=== PATIENT | male | born 1980 | race Caucasian/White ===

== ENCOUNTER 2016-12-14 22:04 | Emergency (ER) | payer OTHER ==
[~2016-12-14] VITALS: Ht 170.2 cm; Wt 102.2 kg
[~2016-12-14 22:04] MED LIST: /CIPR75TA OR; ALBUTEROL LIQ; ANTIBIOTIC PO; FERR325T OR; NICO21DI4 TD; ROBITUSSIN PO; VICO5TAB OR; VITA500T OR
[2016-12-14] MEDS ORDERED: FLUO20CA19 (22:17)
[2016-12-14] MEDS ORDERED: METH40TA PO (22:17)
[2016-12-14] MEDS ORDERED: HYDR1CAP25 (22:17)
[2016-12-14] MEDS ORDERED: SERO50TA (22:17)
[2016-12-14] MEDS ORDERED: BENZ0.5T (22:17)
--- NOTE | 2016-12-15 01:20 | ED PDOC ---
Post-Departure Follow-Up PT PRESENTS WITH FATHER TODAY COMPLAINING OF POSSIBLE MED SIDE EFFECTS FROM STARTING BENZTROPINE LAST WEEK, PRESCRIBED FROM PSYCHIATRIST. PT BEGAN HAVING VISUAL AND AUDITORY HALLUCINATIONS, HE STATES, "I WAS SEEING THINGS THAT AREN'T THERE AND TALKING TO THINGS THAT AREN'T THERE." STATES HE IS STILL HAVING THESE HALLUCINATIONS BUT THEY AREN'T BAD THEY WERE. FATHER IS CONCERNED FOR THIS PT'S SAFETY AT HOME HE HAS NOT SLEPT IN DAYS AND KEEPS NODDING OFF AND THEN GETS STARTLED AWAKE. PT DENIES ANY SI, HI. STATES HE GOES TO [facility] [place] AND HAS A SENIOR CLINICIAN THAT COMES TO PICK HIM UP EARLY IN THE MORNING FOR HIS APPT. PT IS ANXIOUS ABOUT STAYING IN THE HOSPITAL HE WANTS TO GO OUTSIDE AND SMOKE. WHEN HE WAS TOLD HE COULDN'T, PT STATED HE WANTED TO LEAVE. FATHER ASKING PT TO STAY AND GET HIS MEDS SORTED OUT. PT AND FATHER CONTINUED TO DISCUSS THIS AND PT STATES HE WILL STAY UNTIL 1000 TOMORROW. IT IS NOT GUARANTEED THAT HE WOULD BE SEEN BY PSYCH BY THAT TIME. DISCUSSED CASE WITH DR. MENDEZ AND WITH STEFAN (RIANNA). STEFAN WILL SPEAK WITH PT AND FATHER AT THIS TIME. RIANNA AVILES SAW AND SPOKE WITH PT AND FATHER AT THIS TIME. PT AND FATHER CONCERNED ABOUT THE TONGUE SWELLING AN ALLERGIC REACTION. ADVISED DR. MENDEZ ADVISED AGAINST TREATMENT OF THIS FAR STEROIDS. CAN GIVE BENADRYL AND WILL D/C PT TO HOME. PT STATES WILL CALL HIS PSYCHIATRIST TOMORROW. STEFAN ADVISED PT DOES NOT MEET ADMISSION CRITERIA AT THIS TIME. CHARMAINE PERSAUD PA-C Dec 15, 2016 01:20
[2016-12-15] MEDS ORDERED: diphenhydrAMINE 50 MG CAP PO ONE (01:45)
[2016-12-15 01:56] VITALS: BP 134/74
[2016-12-15] MEDS ORDERED: AMBI10TA PO ×2 (08:05→12:37)
[2016-12-15] MEDS ORDERED: ALBU17IN INH (12:16)
[2016-12-15] MEDS ORDERED: ATOR1TAB21 PO (12:16)
[2016-12-15] MEDS ORDERED: FLUO20CA19 PO (12:37)
[2016-12-15] MEDS ORDERED: GEMF600T PO (12:37)
[2016-12-15] MEDS ORDERED: BENZ0.5T PO (12:37)
[2016-12-15] MEDS ORDERED: SERO50TA PO (12:37)
[2016-12-15] MEDS ORDERED: TRIL1TAB PO ×2 (12:37→12:38)
[2016-12-15] MEDS ORDERED: DRIS50002 PO (12:37)
[2016-12-15] MEDS ORDERED: HYDR1CAP25 PO (12:37)
[2016-12-15] MEDS ORDERED: TEST1GEL6 TOP (12:38)
[2016-12-15] MEDS ORDERED: METH10CO PO (12:39)
[2016-12-15] MEDS ORDERED: PATIENT COMMENT (12:40)
== END 2016-12-15 01:58 | disposition home or self-care (01) ==
LOC: M ED 22:04
DX: R44.0 Auditory hallucinations (principal); R44.1 Visual hallucinations; T44.3X5A Adverse effect of other parasympatholytics [anticholinergics and antimuscarinics] and spasmolytics, initial encounter; Z72.0 Tobacco use

== ENCOUNTER 2016-12-15 07:31 | Inpatient (IN) | payer OTHER ==
[2016-12-15] VITALS (8 sets, daily range): BP systolic 105–128; BP diastolic 58–73
[~2016-12-15] VITALS: Ht 170.2 cm; Wt 102.2 kg
[~2016-12-15 07:31] MED LIST changes: +BENZ0.5T; +FLUO20CA19; +HYDR1CAP25; +METH40TA PO; +SERO50TA
[2016-12-15] MEDS ORDERED: AMBI10TA PO ×2 (08:05→12:37)
[2016-12-15 08:36] LABS: BASO % 0.5 % (0.0-1.0); EOS # 0.1 K/mm3 (0.0-0.50); LARGE UNSTAINED CELL # 0.1 K/mm3 (0.0-0.4); LARGE UNSTAINED CELL % 1.3 % (0.0-4.0); LYMPH # 1.7 K/mm3 (1.5-4.5); MEAN CORPUSCULAR HEMOGLOBIN 30.1 pg (27.0-33.0); MEAN CORPUSCULAR HGB CONC 35.3 g/dl (32.0-36.5); MEAN CORPUSCULAR VOLUME 85.4 fl (80.0-96.0); MONO # 0.5 K/mm3 (0.0-0.8); MONO % 4.5 % (0.0-5.0); NEUTROPHILS # 8.1 K/mm3 (1.8-7.7); NEUTROPHILS % 77.7 % (36.0-66.0); PLATELET COUNT, AUTOMATED 185 k/mm3 (150-450); RED CELL DISTRIBUTION WIDTH 13.4 % (11.5-14.5); WHITE BLOOD COUNT 10.4 K/mm3 (4.0-10.0)
--- NOTE | 2016-12-15 09:10 | REP ---
CT Head without contrast HISTORY: Altered mental status COMPARISON: None There is no intraparenchymal hemorrhage, acute infarct, mass or midline shift. The ventricular system is normal in appearance. There is no extra cerebral collection. There is no fracture. The visualized sinuses are clear. IMPRESSION: There is no intracranial lesion. Signed by Gelacio Moreno MD 12/15/2016 09:02 A
[2016-12-15 09:13] LABS: METHADONE URINE POSITIVE (NEGATIVE)
[2016-12-15 09:23] LABS: ALBUMIN 3.9 GM/DL (3.2-5.2); ALKALINE PHOSPHATASE 53 U/L (45-117); ALT/SGPT 60 U/L (12-78); ANION GAP 9 MEQ/L (8-16); AST/SGOT 49 U/L (15-37); BILIRUBIN,DIRECT 0.1 MG/DL (0.0-0.2); BILIRUBIN,TOTAL 0.5 MG/DL (0.2-1.0); BLOOD UREA NITROGEN 13 MG/DL (7-18); CALCIUM LEVEL 8.4 MG/DL (8.5-10.1); CARBON DIOXIDE LEVEL 28 MEQ/L (21-32); CHLORIDE LEVEL 106 MEQ/L (98-107); GLOMERULAR FILTRATION RATE > 60.0 (>60); GLUCOSE, FASTING 104 MG/DL (70-105); POTASSIUM SERUM 3.5 MEQ/L (3.5-5.1); SODIUM LEVEL 143 MEQ/L (136-145); TOTAL PROTEIN 6.9 GM/DL (6.4-8.2)
--- NOTE | 2016-12-15 09:42 | REP ---
CHEST, TWO VIEWS: COMPARISON: 03/14/2013. There is no evidence of acute infiltrate. No pleural effusion is seen. The heart is normal in size. The mediastinal silhouette is unremarkable. The visualized osseous structures are intact. IMPRESSION: No acute pulmonary disease. Signed by Emanuel Mares MD 12/16/2016 08:37 A
[2016-12-15 10:42] LABS: ABG BASE EXCESS -0.5 (-2.0-2.0); ABG HCO3 27.3 MEQ/L (22.0-26.0); ABG PARTIAL PRESSURE CO2 57.3 mmHg (35.0-45.0); ABG PARTIAL PRESSURE O2 108.1 mmHg (75.0-100.0); ABG STANDARD HCO3 24.1 MEQ/L (22.0-26.0); ABG TOTAL CO2 29.1 MEQ/L (22.0-29.0); ABG pH (ARTERIAL) 7.296 UNITS (7.350-7.450)
[2016-12-15] MEDS ORDERED: NALOXONE INJ 0.4 MG/1 ML VIAL (J2310) IV STA (11:16)
[2016-12-15] MEDS ORDERED: MORPHINE 2 MG/ML 1ML SYRINGE IV ONE (11:30)
[2016-12-15] MEDS ORDERED: ONDANSETRON 4MG/2ML VIAL (J2405) As Ordered ONE (11:36)
[2016-12-15] MEDS ORDERED: ONDANSETRON 4MG/2ML VIAL (J2405) IV ONE (11:45)
[2016-12-15] MEDS ORDERED: MORPHINE 4 MG/ML 1ML SYRINGE IV ONE ×2 (11:45→12:15)
[2016-12-15] MEDS ORDERED: NS 1,000 ML IV ONE (12:00)
[2016-12-15] MEDS: NS 1,000 ML IV SCH (12:05)
[2016-12-15] MEDS ORDERED: LORazepam 2 MG/ML VIAL (J2060) IV STA (12:13)
[2016-12-15] MEDS ORDERED: ATOR1TAB21 PO (12:16)
[2016-12-15] MEDS ORDERED: ALBU17IN INH (12:16)
[2016-12-15] MEDS ORDERED: TRIL1TAB PO ×2 (12:37→12:38)
[2016-12-15] MEDS ORDERED: BENZ0.5T PO (12:37)
[2016-12-15] MEDS ORDERED: HYDR1CAP25 PO (12:37)
[2016-12-15] MEDS ORDERED: DRIS50002 PO (12:37)
[2016-12-15] MEDS ORDERED: FLUO20CA19 PO (12:37)
[2016-12-15] MEDS ORDERED: SERO50TA PO (12:37)
[2016-12-15] MEDS ORDERED: GEMF600T PO (12:37)
[2016-12-15] MEDS ORDERED: TEST1GEL6 TOP (12:38)
[2016-12-15] MEDS ORDERED: METH10CO PO (12:39)
[2016-12-15] MEDS ORDERED: PATIENT COMMENT (12:40)
[2016-12-15] MEDS ORDERED: HALOPERIDOL 2 MG TAB PO STA (12:42)
[2016-12-15] MEDS ORDERED: ALBUTEROL 90 MCG/ACT 8GM HFA INHALER INH PRN (13:00)
[2016-12-15] MEDS ORDERED: HALOPERIDOL 5 MG/ML VIAL (J1630) IV PRN (13:00)
[2016-12-15] MEDS ORDERED: LORazepam 2 MG/ML VIAL (J2060) IV PRN (13:00)
[2016-12-15] MEDS: HEPARIN SOD (PORCINE) 5000 UNITS/ML VIAL SC SCH ×2 (14:00→22:00)
[2016-12-15] MEDS ORDERED: OLANZapine ORAL DISINTEGRATING TAB 5MG PO STA (14:03)
[2016-12-15] MEDS ORDERED: OLANZapine 5 MG TAB PO PRN (14:15)
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
--- NOTE | 2016-12-15 14:39 | MHIPNPDOC ---
[facility] Progress Note Progress Note DATE OF SERVICE: 12/15/16 HISTORY: Consulted n patient who came to the Emergency Room after he walked AMA yesterday. patient, according to history, uses methadone and Ambien. It is possible that he uses other psych medications. According to report from the emergency Room, a person observed he took his Methadone and took Ambien but that person is not quite sure as of how much Ambien he took. He was given a dose of Narcan at the Emergency Room and according to Dr. Jacobs, he went really fast into withdrawals. He also said the the ED staff should keep his DNA because he was one of President Esteban henry. He has been been agitated and received one dose of Haldol Iv and one dose of Ativan IV. Recommend not using Haldol IV, it is preferable to use it IM/PO. He can be started on Zyprexa Zydis 10 mgs. initially and 5 mgs q6 hrs. PRN for psychosis/ agitation. If he refuses the oral medication, can give him Haldol 5 mgs. q6 horus PRN for agitation and psychosis. The patient might have had an accidental or intentional overdose on Ambien or could have used a synthetic form of marihuana. Will continue assessing him. Thanks for the consult. TIME SPENT: 20 minutes. Vital Signs Vital Signs Date Time Temp Pulse Resp B/P (MAP) Pulse Ox O2 Delivery O2 Flow Rate FiO2 12/15/16 14:13 97.7 93 16 127/68 (87) 97 12/15/16 13:34 Room Air 12/15/16 10:46 2.0 Laboratory Data 24H Labs Laboratory Tests 2 12/15/16 08:25: White Blood Count 10.4H, Red Blood Count 5.19, Hemoglobin 15.6, Hematocrit 44.3 , Mean Corpuscular Volume 85.4, Mean Corpuscular Hemoglobin 30.1, Mean Corpuscular Hemoglobin Concent 35.3, Red Cell Distribution Width 13.4, Platelet Count 185, Neutrophils (%) (Auto) 77.7H, Lymphocytes (%) (Auto) 15.0L, Monocytes (%) (Auto) 4.5, Eosinophils (%) (Auto) 1.0, Basophils (%) (Auto) 0.5, Neutrophils # (Auto) 8.1H, Lymphocytes # (Auto) 1.7, Monocytes # (Auto) 0.5, Eosinophils # (Auto) 0.1, Basophils # (Auto) 0.0, Large Unclassified Cells % 1.3 , Large Unclassified Cells # 0.1, Anion Gap 9, Glomerular Filtration Rate > 60.0 , Calcium Level 8.4L, Aspartate Amino Transf (AST/SGOT) 49H, Alanine Aminotransferase (ALT/SGPT) 60, Alkaline Phosphatase 53, Total Bilirubin 0.5, Direct Bilirubin 0.1, Total Protein 6.9, Albumin 3.9, Albumin/Globulin Ratio 1.30, Thyroid Stimulating Hormone (TSH) 2.440, Salicylates Level 2.7L, Urine Amphetamines Screen NEGATIVE, Urine Benzodiazepines Screen NEGATIVE, Urine Opiates Screen NEGATIVE, Urine Methadone Screen POSITIVEH, Acetaminophen Level < 2.0L, Urine Barbiturates Screen NEGATIVE, Urine Phencyclidine Screen NEGATIVE , Urine Cocaine Metabolite Screen NEGATIVE, Urine Cannabinoids Screen NEGATIVE, Ethyl Alcohol Level < 0.003 12/15/16 10:36: Blood Gas Bicarbonate Standard 24.1, Arterial Blood pH 7.296L, Arterial Blood Partial Pressure CO2 57.3H, Arterial Blood Partial Pressure O2 108.1H, Arterial Blood Total CO2 29.1H, Arterial Blood HCO3 27.3H, Arterial Blood Base Excess - 0.5, Arterial Blood Oxygen Saturation 97.5 CBC/BMP Laboratory Tests 12/15/16 08:25 Red Blood Count 5.19, Mean Corpuscular Volume 85.4, Mean Corpuscular Hemoglobin 30.1, Mean Corpuscular Hemoglobin Concent 35.3, Red Cell Distribution Width 13.4 , Neutrophils (%) (Auto) 77.7 H, Lymphocytes (%) (Auto) 15.0 L, Monocytes (%) ( Auto) 4.5, Eosinophils (%) (Auto) 1.0, Basophils (%) (Auto) 0.5, Neutrophils # ( Auto) 8.1 H, Lymphocytes # (Auto) 1.7, Monocytes # (Auto) 0.5, Eosinophils # ( Auto) 0.1, Basophils # (Auto) 0.0 Current Medications Current Medications Albuterol Sulfate (Proventil, Ventolin Hfa) 2 puff Q4H PRN INH SHORTNESS OF BREATH; Start 12/15/16 at 13:00; Stop 01/14/17 at 12:59 Haloperidol (Haldol) 1 mg Q4HP PRN IV AGITATION; Start 12/15/16 at 13:00; Stop 12/15/16 at 14:05; Status DC Haloperidol (Haldol) 2 mg STAT STAT PO ; Start 12/15/16 at 12:42; Stop 12/15/16 at 14:05; Status DC Heparin Sodium (Porcine) (Heparin) 5,000 units Q8H SC ; Start 12/15/16 at 14:00; Stop 12/20/16 at 13:59 Home Med (Med Rec Complete!) ASDIRECTED XX ; Start 12/15/16 at 12:45; Stop at 12:46; Status DC Lorazepam (Ativan) 1 mg Q4HP PRN IV ANXIETY/AGITATION; Start 12/15/16 at 13:00; Stop 12/15/16 at 14:05; Status DC Lorazepam (Ativan) 1 mg STAT STAT IV Last administered on 12/15/16t 12:17; Start 12/15/16 at 12:13; Stop 12/15/16 at 12:14; Status DC Naloxone HCl (Narcan) 0.4 mg STAT STAT IV Last administered on 12/15/16t 11:21 ; Start 12/15/16 at 11:16; Stop 12/15/16 at 11:17; Status DC Olanzapine (ZyPREXA ZYDIS) 10 mg STAT STAT PO ; Start 12/15/16 at 14:03; Stop 12/15/16 at 14:10; Status DC Olanzapine (ZyPREXA) 5 mg Q6HP PRN PO AGITATION; Start 12/15/16 at 14:15; Stop 01/14/17 at 14:14 Sodium Chloride 1,000 ml @ 80 mls/hr [id number] IV ; Start 12/15/16 at 12:05; Stop 01/14/17 at 12:04 Allergies Coded Allergies: No Known Drug Allergy (Verified Allergy, Unknown, 08/10/12) ALE BENÍTEZ MD Dec 15, 2016 14:39
[2016-12-15] MEDS ORDERED: HALOPERIDOL 5 MG/ML VIAL (J1630) IM PRN (14:45)
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
[2016-12-16] VITALS: BP 113/63
[2016-12-16] MEDS: NS 1,000 ML IV SCH ×2 (00:35→06:05)
[2016-12-16 01:00] VITALS: BP 103/61
[2016-12-16 02:00] VITALS: BP 102/64
[2016-12-16 03:00] VITALS: BP 150/78
[2016-12-16 04:00] VITALS: BP 145/70
[2016-12-16 05:58] LABS: MEAN CORPUSCULAR HEMOGLOBIN 29.6 pg (27.0-33.0); MEAN CORPUSCULAR HGB CONC 33.9 g/dl (32.0-36.5); MEAN CORPUSCULAR VOLUME 87.3 fl (80.0-96.0); RED CELL DISTRIBUTION WIDTH 13.6 % (11.5-14.5); WHITE BLOOD COUNT 12.1 K/mm3 (4.0-10.0)
[2016-12-16] MEDS: HEPARIN SOD (PORCINE) 5000 UNITS/ML VIAL SC SCH ×2 (06:00→14:00)
[2016-12-16 06:18] LABS: ALBUMIN 3.4 GM/DL (3.2-5.2); ALBUMIN/GLOBULIN RATIO 1.03 (1.00-1.93); ALKALINE PHOSPHATASE 50 U/L (45-117); ALT/SGPT 58 U/L (12-78); ANION GAP 10 MEQ/L (8-16); AST/SGOT 39 U/L (15-37); BILIRUBIN,TOTAL 0.4 MG/DL (0.2-1.0); BLOOD UREA NITROGEN 11 MG/DL (7-18); CALCIUM LEVEL 8.6 MG/DL (8.5-10.1); CARBON DIOXIDE LEVEL 25 MEQ/L (21-32); CHLORIDE LEVEL 109 MEQ/L (98-107); CREATININE FOR GFR 0.91 MG/DL (0.70-1.30); GLOMERULAR FILTRATION RATE > 60.0 (>60); GLUCOSE, FASTING 64 MG/DL (70-105); POTASSIUM SERUM 3.8 MEQ/L (3.5-5.1); SODIUM LEVEL 144 MEQ/L (136-145); TOTAL PROTEIN 6.7 GM/DL (6.4-8.2)
[2016-12-16] MEDS ORDERED: DEXTROSE 50% 50 ML SYRINGE IV STA (06:38)
[2016-12-16] MEDS ORDERED: METHADONE 10 MG TAB (S0109) PO SCH (09:00)
--- NOTE | 2016-12-16 10:32 | ECGEPIP ---
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
[2016-12-16 14:30] VITALS: BP 158/80
--- NOTE | 2016-12-16 14:51 | MHIPNPDOC ---
[facility] Progress Note Progress Note DATE OF SERVICE: 12/16/16 HISTORY: 36 year old male with history of behavioral changes and altered consciousness who was delusional at the ER. Received one dose of Narcan, Haldol and Ativan at the ED, was transferred to the ICU, his initial CK levels were 903 and this morning were 758. Patient's friend, who is a Stapling Machine Operator reports he has been watching over the patient because he was extremely anxious and couldn't sleep. Prior to his admission he was hallucinating ( visual hallucinations) but the patient denied auditory hallucinations. Friend/gate watchman saw him extremely tired and wandering around the house, left the stove on and brought him to the Hospital. Friend says he can take him home if his Outpatient Providers can be changed because patient complained of being with different providers at [facility], and not liking the way he is seen over there. Dr. Borges was made aware of this situation and this marketing copywriter recommended him that the patient can go to [facility] for his Outpatient psychiatric follow up. The patient is alert, oriented, cooperative, dressed in hospital clothes. His speech is rapid, his thought process is intact, his thought content is coherent and goal directed. He denies auditory/visual hallucinations, denies thought delusions and denies suicidal or homicidal ideation. His memory is intact but has almost no recollection of this recent episode, couldn't remember this marketing copywriter. Attention span and concentration are fair, abstract thinking and computation is fair, judgement, insight and impulse control are appropriate. This marketing copywriter offered the patient the possibility of being transferred to the [facility] but he refused, says he wants to go home. The only reason for transferring him would be for medication adjustments, because his friend/gate watchman and he deny, intentional overdose, deny suicidal thoughts and deny illegal drug consumption, but he refused, saying he wants to go home and his friend said he would be supervising him and his medication consumption. He is on methadone, he goes everyday to [facility] for his 95 mgs. of Methadone, he has been clear, and his friend/gate watchman is being very supportive, is willing to continue being supportive. The only request he has is to have the patient connected to other Outpatient Provider for his psychiatric medications, and the patient has also requested this. Dr. borges and the ICU were notified, Dr. borges said they can do the referral. The patient was given 80 mgs. of methadone because his methadone clinic said because he didn't take his 95 mgs. yesterday, it was better for him to take 80 mgs. today. Pt. will continue with his methadone treatment at [facility] and will be attending the [facility] on [facility], once Dr. Borges and his staff are able to arrange an appointment for him He is medically clear and from the psychiatry point of view he can follow up as an outpatient. He can continue taking fluoxetine 20 mgs and Seroquel 50 mgs, but it is better for him to start using them tomorrow, 12/17/16. Vital Signs Vital Signs Date Time Temp Pulse Resp B/P (MAP) Pulse Ox O2 Delivery O2 Flow Rate FiO2 12/16/16 04:00 99.6 96 17 145/70 (95) 94 Nasal Cannula 1.0 Laboratory Data 24H Labs Laboratory Tests 2 12/16/16 05:48: Anion Gap 10, Glomerular Filtration Rate > 60.0, Blood Urea Nitrogen 11, Creatinine 0.91, Sodium Level 144, Potassium Level 3.8, Chloride Level 109H, Carbon Dioxide Level 25, Calcium Level 8.6, Aspartate Amino Transf (AST/SGOT) 39H, Alanine Aminotransferase (ALT/SGPT) 58, Total Creatine Kinase 758H, Alkaline Phosphatase 50, Total Bilirubin 0.4, Total Protein 6.7, Albumin 3.4, Albumin/Globulin Ratio 1.03 12/16/16 06:34: Bedside Glucose (Misc Panel) 66L 12/16/16 07:31: Bedside Glucose (Misc Panel) 148H CBC/BMP Laboratory Tests 12/16/16 05:48 Red Blood Count 5.35, Mean Corpuscular Volume 87.3, Mean Corpuscular Hemoglobin 29.6, Mean Corpuscular Hemoglobin Concent 33.9, Red Cell Distribution Width 13.6 , Calcium Level 8.6, Aspartate Amino Transf (AST/SGOT) 39 H, Alanine Aminotransferase (ALT/SGPT) 58, Total Creatine Kinase 758 H, Alkaline Phosphatase 50, Total Bilirubin 0.4, Total Protein 6.7, Albumin 3.4 Current Medications Current Medications Albuterol Sulfate (Proventil, Ventolin Hfa) 2 puff Q4H PRN INH SHORTNESS OF BREATH; Start 8/7/17 at 13:00; Stop 01/14/17 at 12:59 Dextrose (Dextrose 50%) 50 ml STAT STAT IV Last administered on 12/16/16 06:38 ; Start 12/16/16 at 06:38; Stop 12/16/16 at 06:41; Status DC Haloperidol (Haldol) 1 mg Q4HP PRN IV AGITATION; Start 12/15/16 at 13:00; Stop 12/15/16 at 14:05; Status DC Haloperidol (Haldol) 2 mg STAT STAT PO ; Start 12/15/16 at 12:42; Stop 12/15/16 at 14:05; Status DC Haloperidol (Haldol) 5 mg Q6HP PRN IM AGITATION; Start 12/15/16 at 14:45; Stop 12/16/16 at 13:31; Status DC Heparin Sodium (Porcine) (Heparin) 5,000 units Q8H SC Last administered on 06:00; Start 12/15/16 at 14:00; Stop 12/20/16 at 13:59 Home Med (Med Rec Complete!) ASDIRECTED XX ; Start 12/15/16 at 12:45; Stop at 12:46; Status DC Lorazepam (Ativan) 1 mg Q4HP PRN IV ANXIETY/AGITATION; Start 12/15/16 at 13:00; Stop 12/15/16 at 14:05; Status DC Lorazepam (Ativan) 1 mg STAT STAT IV Last administered on 12/15/16 12:17; Start 12/15/16 at 12:13; Stop 12/15/16 at 12:14; Status DC Methadone HCl (Dolophine) 80 mg DAILY PO ; Start 12/16/16 at 09:00; Stop at 08:59 Naloxone HCl (Narcan) 0.4 mg STAT STAT IV Last administered on 12/15/16 11:21 ; Start 12/15/16 at 11:16; Stop 12/15/16 at 11:17; Status DC Olanzapine (ZyPREXA ZYDIS) 10 mg STAT STAT PO ; Start 12/15/16 at 14:03; Stop 12/15/16 at 14:10; Status DC Olanzapine (ZyPREXA) 5 mg Q6HP PRN PO AGITATION Last administered on 12/15/16 22:15; Start 12/15/16 at 14:15; Stop 01/14/17 at 14:14 Sodium Chloride 1,000 ml @ 80 mls/hr [id number] IV Last administered on 12/16/16 06:05; Start 12/15/16 at 12:05; Stop 01/14/17 at 12:04 Allergies Coded Allergies: No Known Drug Allergy (Verified Allergy, Unknown, 08/10/12) ALE BENÍTEZ MD Dec 16, 2016 14:51
--- NOTE | 2016-12-17 22:35 | ECGEPIP ---
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
--- NOTE | 2016-12-22 19:04 | DS.PDOC ---
Discharge Summary General Date of Admission Dec 15, 2016 at 12:05 Date of Discharge 12/17/16 Specialist/Consultants Involve: ALE BENÍTEZ MD Discharge Summary PROCEDURES PERFORMED DURING STAY: None. ADMITTING DIAGNOSES: 1. . Substance induced mood disorder/ Bipolar Disorder 2. . Alteration in mental status 3. . Asthma DISCHARGE DIAGNOSES: 1. . Substance induced mood disorder/ Bipolar Disorder 2. . Alteration in mental status 3. . Asthma COMPLICATIONS/CHIEF COMPLAINT: Drug Overdose,Respiratory Acidosis. HISTORY OF PRESENT ILLNESS: . 36-year-old male with past medical history of substance abuse currently on methadone program, asthma, and psychiatric disorder presented to the ER with behavioral changes and altered consciousness. The patient was subsequently given a dose of Narcan, Haldol, and Ativan in the ER. The patient was admitted to the hospitalist service for further evaluation and management. According to reports, the patient was noted to have visual hallucinations. The patient's friend reported that he had bizarre behavior including appearing extremely tired and walking around the house while leaving the stove on. The patient's friend subsequently brought him to the ER for further evaluation and management. During hospitalization, the patient was observed in the intensive care unit. The patient was provided IV fluid hydration and supportive treatment. The patient's mentation improved, and he was medically stable. He was evaluated by our psychiatry attending, and was deemed safe to return home with his friend/ adapted physical education specialist who will be staying with him. The patient's psychiatric medication regimen was adjusted by psychiatry. The patient has been recommended to follow- up with [facility] for his outpatient psychiatric follow-up. At this time, the patient states that he is feeling well and he is eager to return home. I've advised the patient to follow-up with [facility] as noted above, and with his primary care physician within one week. In addition, I have consulted the patient to return to the ER for any acute emergency. DISCHARGE MEDICATIONS: Please see below. ALLERGIES: Please see below. PHYSICAL EXAMINATION ON DISCHARGE: VITAL SIGNS: Please see below. GENERAL: Awake, alert, oriented, in no acute distress HEENT: Normocephalic, atraumatic NECK: No JVD CARDIOVASCULAR EXAMINATION: Normal rate, normal rhythm RESPIRATORY EXAMINATION: Clear to auscultation bilaterally ABDOMINAL EXAMINATION: Soft, nontender EXTREMITIES: No swelling, tenderness LABORATORY DATA: Please see below. IMAGING: CT Head without contrast HISTORY: Altered mental status COMPARISON: None There is no intraparenchymal hemorrhage, acute infarct, mass or midline shift. The ventricular system is normal in appearance. There is no extra cerebral collection. There is no fracture. The visualized sinuses are clear. IMPRESSION: There is no intracranial lesion. PROGNOSIS: Medically stable ACTIVITY: As tolerated. DIET: . Regular diet DISCHARGE PLAN: DISPOSITION: Home, Self-Care. DISCHARGE INSTRUCTIONS: 1. . Follow-up at [facility] within one week 2. . Follow-up with primary care physician within one week 3. . Return to the ER for any acute emergencies DISCHARGE CONDITION: Stable. TIME SPENT ON DISCHARGE: Greater than 30 minutes. Vital Signs/I&Os Vital Signs Date Time Temp Pulse Resp B/P (MAP) Pulse Ox O2 Delivery O2 Flow Rate FiO2 12/16/16 16:00 Nasal Cannula 2.0 12/16/16 14:30 18 158/80 12/16/16 04:00 99.6 96 94 Discharge Medications Scheduled (Testosterone) 1 % Gel, 50 MG TOP DAILY, (Reported) Fluoxetine Hcl (Fluoxetine HCl) 20 Mg Cap, 20 MG PO DAILY, (Reported) Gemfibrozil (Gemfibrozil) 600 Mg Tab, 600 MG PO BID, (Reported) Oxcarbazepine (Trileptal) 300 Mg Tab, 150 MG PO QAM, (Reported) Oxcarbazepine (Trileptal) 300 Mg Tab, 300 MG PO QHS, (Reported) Quetiapine Fumerate (Seroquel) 50 Mg Tab, 50 MG PO QHS, (Reported) Vitamin D (Drisdol) 50,000 Unit Cap, 50,000 UNIT PO QWEEK, (Reported) Scheduled PRN Albuterol Sulfate (Ventolin Hfa) 200 Puff/8 Gm Aers, 2 PUFF INH Q4H PRN for SHORTNESS OF BREATH, (Reported) Allergies Coded Allergies: No Known Drug Allergy (Verified Allergy, Unknown, 08/10/12) JIA CROCKETT MD Dec 22, 2016 19:04
== END 2016-12-16 16:29 | disposition home or self-care (01) | DRG 425 ==
LOC: M ED 07:31 → M ED INP 12:05 → M ICU 14:25
PROVIDERS: ADMIT Internal Medicine; ATTEND Internal Medicine
DX: E87.2 Acidosis (principal); F19.151 Other psychoactive substance abuse with psychoactive substance-induced psychotic disorder with hallucinations; R41.82 Altered mental status, unspecified; D50.9 Iron deficiency anemia, unspecified; Z79.899 Other long term (current) drug therapy

== ENCOUNTER → 2016-12-22 | Outpatient (CLI) | payer OTHER ==
[~2016-12-22] MED LIST changes: +ALBU17IN INH; +AMBI10TA PO; +ATOR1TAB21 PO; +BENZ0.5T PO; +DRIS50002 PO; +FLUO20CA19 PO; +GEMF600T PO; +HYDR1CAP25 PO; +METH10CO PO; +PATIENT COMMENT; +SERO50TA PO; +TEST1GEL6 TOP; +TRIL1TAB PO
--- NOTE | 2016-12-27 09:25 | SLEEPHOME ---
DATE OF PROCEDURE: 12/22/2016 ORDERED BY: Dr. aWlker Diagnostic home sleep testing was performed due to concern for the obstructive sleep apnea syndrome. For resting a NOX-T3 respiratory monitoring device was used. Continuous record was made of pulse, oxygen saturation, air flow chest and abdominal strain and body position. 9 hours and 59 minutes of data were reviewed. Of these, 5 hours and 33 minutes were marked as time in bed. During the interval marked time in bed there were 78 respiratory events identified of 10 seconds in duration or greater for a respiratory event index of 14. The events were primary obstructive but significant mixed and central apneas were also seen. Baseline pulse rate was 70 beats per minute. Pulse rate ranged 49 to 108. Baseline oxygen saturation was 93%. Lowest oxygen saturation recorded was 89%. Testing was performed in both the supine and non-supine positions. IMPRESSION: Abnormal home sleep testing with repetitive respiratory events and oxygen desaturations to 89% with a respiratory event index of 22.8 is consistent with the obstructive sleep apnea syndrome. RECOMMENDATIONS: The patient should be referred for formal sleep evaluation and in laboratory pressure titration.
== END ==
LOC: M SLEEP HO 14:19
PROVIDERS: ATTEND Internal Medicine Cardiovascular Disease
DX: G47.33 Obstructive sleep apnea (adult) (pediatric) (principal)

== ENCOUNTER → 2017-07-17 | Outpatient (CLI) | payer OTHER ==
[2017-07-17 13:30] LABS: BASO # 0.1 10^3/uL (0.0-0.2); BASO % 0.7 % (0.0-1.0); EOS # 0.2 10^3/uL (0.0-0.50); EOS % 1.9 % (0.0-3.0); HEMATOCRIT 50.5 % (42.0-52.0); HEMOGLOBIN 17.1 g/dl (14.0-18.0); IMMATURE GRANULOCYTE % 0.3 % (0-3.0); LYMPH # 3.2 10^3/uL (1.5-4.5); LYMPH % 32.9 % (24.0-44.0); MEAN CORPUSCULAR HEMOGLOBIN 28.6 pg (27.0-33.0); MEAN CORPUSCULAR HGB CONC 33.9 g/dl (32.0-36.5); MEAN CORPUSCULAR VOLUME 84.6 fl (80.0-96.0); MONO # 0.8 10^3/uL (0.0-0.8); MONO % 8.6 % (0.0-5.0); NEUTROPHILS # 5.4 10^3/uL (1.8-7.7); NEUTROPHILS % 55.6 % (36.0-66.0); PLATELET COUNT, AUTOMATED 211 10^3/uL (150-450); RED BLOOD COUNT 5.97 10^6/uL (4.30-6.10); RED CELL DISTRIBUTION WIDTH 13.2 % (11.5-14.5); WHITE BLOOD COUNT 9.8 10^3/uL (4.0-10.0)
[2017-07-17 14:06] LABS: ALBUMIN/GLOBULIN RATIO 1.25 (1.00-1.93); ALKALINE PHOSPHATASE 57 U/L (45-117); ALT/SGPT 54 U/L (12-78); ANION GAP 10 MEQ/L (8-16); AST/SGOT 30 U/L (7-37); BILIRUBIN,TOTAL 0.3 MG/DL (0.2-1.0); BLOOD UREA NITROGEN 12 MG/DL (7-18); CARBON DIOXIDE LEVEL 25 MEQ/L (21-32); CHLORIDE LEVEL 104 MEQ/L (98-107); CREATININE FOR GFR 1.09 MG/DL (0.70-1.30); GLOMERULAR FILTRATION RATE > 60.0 (>60); GLUCOSE, FASTING 129 MG/DL (70-100); POTASSIUM SERUM 4.3 MEQ/L (3.5-5.1); SODIUM LEVEL 139 MEQ/L (136-145); TOTAL PROTEIN 7.2 GM/DL (6.4-8.2); URIC ACID 5.1 MG/DL (3.5-7.2)
== END ==
LOC: M WUC 11:05
DX: M79.671 Pain in right foot (principal)
CPT/HCPCS: 84550

== ENCOUNTER → 2018-01-18 | Outpatient (CLI) | payer OTHER ==
[2018-01-18 09:37] LABS: HEMATOCRIT 49.9 % (42.0-52.0); HEMOGLOBIN 17.1 g/dl (13.5-17.5); MEAN CORPUSCULAR HEMOGLOBIN 28.9 pg (27.0-33.0); MEAN CORPUSCULAR HGB CONC 34.3 g/dl (32.0-36.5); MEAN CORPUSCULAR VOLUME 84.4 fl (80.0-96.0); PLATELET COUNT, AUTOMATED 192 10^3/uL (150-450); RED BLOOD COUNT 5.91 10^6/uL (4.30-6.10); RED CELL DISTRIBUTION WIDTH 13.5 % (11.5-14.5); WHITE BLOOD COUNT 7.1 10^3/uL (4.0-10.0)
[2018-01-18 10:58] LABS: ALBUMIN 3.9 GM/DL (3.2-5.2); ALBUMIN/GLOBULIN RATIO 1.15 (1.00-1.93); ALKALINE PHOSPHATASE 62 U/L (45-117); ALT/SGPT 64 U/L (12-78); ANION GAP 6 MEQ/L (8-16); AST/SGOT 29 U/L (7-37); BILIRUBIN,TOTAL 0.3 MG/DL (0.2-1.0); BLOOD UREA NITROGEN 14 MG/DL (7-18); CALCIUM LEVEL 9.4 MG/DL (8.5-10.1); CARBON DIOXIDE LEVEL 30 MEQ/L (21-32); CHLORIDE LEVEL 103 MEQ/L (98-107); CREATININE FOR GFR 1.14 MG/DL (0.70-1.30); GLOMERULAR FILTRATION RATE > 60.0 (>60); GLUCOSE, FASTING 105 MG/DL (70-100); POTASSIUM SERUM 4.5 MEQ/L (3.5-5.1); SODIUM LEVEL 139 MEQ/L (136-145); TOTAL PROTEIN 7.3 GM/DL (6.4-8.2)
[2018-01-18 11:21] LABS: CHLAMYDIA DNA AMPLIFICATION NEGATIVE (NEGATIVE); GC DNA AMPLIFICATION NEGATIVE (NEGATIVE)
[2018-01-18 13:41] LABS: HEPATITIS B SURFACE ANTIGEN NEGATIVE (NEGATIVE)
[2018-01-18 14:36] LABS: HEPATITIS C VIRUS ABY INDEX > 11.0 INDEX (<0.8)
[2018-01-20 19:19] LABS: HIV 1&2 SCREEN CENTAUR NEGATIVE (NEGATIVE)
[2018-01-21 14:17] LABS: HCV RNA NAA QUALITATIVE Negative (Negative)
== END ==
LOC: M LAB 08:43
DX: F11.21 Opioid dependence, in remission (principal); I49.9 Cardiac arrhythmia, unspecified
CPT/HCPCS: 93005

== ENCOUNTER → 2018-04-19 | Outpatient (CLI) | payer OTHER ==
[2018-04-19 16:53] LABS: BASO # 0.1 10^3/uL (0.0-0.2); BASO % 0.7 % (0.0-1.0); EOS # 0.2 10^3/uL (0.0-0.50); EOS % 2.5 % (0.0-3.0); HEMATOCRIT 46.6 % (42.0-52.0); HEMOGLOBIN 16.1 g/dl (13.5-17.5); IMMATURE GRANULOCYTE % 0.2 % (0-3.0); LYMPH # 3.3 10^3/uL (1.5-4.5); LYMPH % 40.7 % (24.0-44.0); MEAN CORPUSCULAR HGB CONC 34.5 g/dl (32.0-36.5); MEAN CORPUSCULAR VOLUME 83.8 fl (80.0-96.0); MONO # 0.7 10^3/uL (0.0-0.8); MONO % 8.2 % (0.0-5.0); NEUTROPHILS # 3.8 10^3/uL (1.8-7.7); NEUTROPHILS % 47.7 % (36.0-66.0); PLATELET COUNT, AUTOMATED 201 10^3/uL (150-450); RED BLOOD COUNT 5.56 10^6/uL (4.30-6.10)
[2018-04-19 17:39] LABS: ALBUMIN 4.1 GM/DL (3.2-5.2); ALBUMIN/GLOBULIN RATIO 1.32 (1.00-1.93); ALKALINE PHOSPHATASE 67 U/L (45-117); ALT/SGPT 59 U/L (12-78); ANION GAP 6 MEQ/L (8-16); AST/SGOT 27 U/L (7-37); BILIRUBIN,TOTAL 0.3 MG/DL (0.2-1.0); BLOOD UREA NITROGEN 14 MG/DL (7-18); CALCIUM LEVEL 9.5 MG/DL (8.5-10.1); CARBON DIOXIDE LEVEL 31 MEQ/L (21-32); CHLORIDE LEVEL 100 MEQ/L (98-107); CREATININE FOR GFR 1.16 MG/DL (0.70-1.30); GLOMERULAR FILTRATION RATE > 60.0 (>60); GLUCOSE, FASTING 108 MG/DL (70-100); POTASSIUM SERUM 4.8 MEQ/L (3.5-5.1); SODIUM LEVEL 137 MEQ/L (136-145); TOTAL PROTEIN 7.2 GM/DL (6.4-8.2); URIC ACID 4.1 MG/DL (3.5-7.2)
== END ==
LOC: M WUC 13:33
DX: L03.115 Cellulitis of right lower limb (principal)
CPT/HCPCS: 84550

== ENCOUNTER → 2018-07-08 | Outpatient (CLI) | payer OTHER, MEDICAID ==
[~2018-07-08] MED LIST changes: -DRIS50002 PO; +DRIS50003 PO; -GEMF600T PO; +GEMF600T5 PO
--- NOTE | 2018-07-08 15:43 | REP ---
Clinical: Right lower extremity pain and swelling . Technique: Mares scale and color Doppler evaluation using linear high frequency transducer. Findings: Ultrasound examination of the right lower extremity deep venous structures from the common femoral vein to the popliteal vein demonstrates normal compressibility flow and wave patterns in response to respiration and augmentation. There is no evidence for deep venous thrombosis. Impression: No evidence for deep venous thrombosis. Electronically Signed by Terry Grayson MD 07/08/2018 02:32 P
== END ==
LOC: M RAD 13:52
PROVIDERS: ATTEND Physician Assistant Medical
DX: R22.41 Localized swelling, mass and lump, right lower limb (principal)

== ENCOUNTER → 2018-10-14 | Outpatient (CLI) | payer OTHER ==
[2018-10-14 12:53] LABS: BASO # 0.1 10^3/uL (0.0-0.2); BASO % 0.5 % (0.0-1.0); EOS # 0.2 10^3/uL (0.0-0.50); EOS % 1.6 % (0.0-3.0); HEMATOCRIT 48.4 % (42.0-52.0); HEMOGLOBIN 16.3 g/dl (13.5-17.5); LYMPH # 2.9 10^3/uL (1.5-4.5); LYMPH % 26.9 % (24.0-44.0); MEAN CORPUSCULAR HEMOGLOBIN 29.1 pg (27.0-33.0); MEAN CORPUSCULAR HGB CONC 33.7 g/dl (32.0-36.5); MEAN CORPUSCULAR VOLUME 86.4 fl (80.0-96.0); MONO # 0.9 10^3/uL (0.0-0.8); MONO % 8.2 % (0.0-5.0); NEUTROPHILS # 6.7 10^3/uL (1.8-7.7); NEUTROPHILS % 62.4 % (36.0-66.0); PLATELET COUNT, AUTOMATED 180 10^3/uL (150-450); WHITE BLOOD COUNT 10.8 10^3/uL (4.0-10.0)
[2018-10-14 13:35] LABS: ALT/SGPT 39 U/L (12-78); BILIRUBIN,TOTAL 0.2 MG/DL (0.2-1.0); BLOOD UREA NITROGEN 15 MG/DL (7-18); CARBON DIOXIDE LEVEL 30 MEQ/L (21-32); CHLORIDE LEVEL 103 MEQ/L (98-107); CHOLESTEROL LEVEL 210 MG/DL (<200); CHOLESTEROL RISK RATIO 7.241 (<5); CREATININE FOR GFR 0.93 MG/DL (0.70-1.30); FREE T4 1.01 NG/DL (0.76-1.46); GLOMERULAR FILTRATION RATE > 60.0 (>60); GLUCOSE, FASTING 96 MG/DL (70-100); HDL CHOLESTEROL 29 MG/DL (>40); LDL CHOLESTEROL 141 MG/DL (<100); NON-HDL-C 181 MG/DL; POTASSIUM SERUM 4.2 MEQ/L (3.5-5.1); SODIUM LEVEL 137 MEQ/L (136-145); TRIGLYCERIDES LEVEL 202 MG/DL (<150)
[2018-10-14 13:37] LABS: TOTAL 25(OH) VITAMIN D 44.1 NG/ML (30.0-100.0)
[2018-10-14 13:47] LABS: HEMOGLOBIN A1c 5.8 %
[2018-10-14 14:06] LABS: TESTOSTERONE 118 NG/DL (241-827)
== END ==
LOC: M WUC 10-13 10:01
PROVIDERS: ATTEND Physician Assistant Medical
DX: I10 Essential (primary) hypertension (principal); R53.83 Other fatigue; E78.2 Mixed hyperlipidemia; E11.9 Type 2 diabetes mellitus without complications; E55.9 Vitamin D deficiency, unspecified

== ENCOUNTER → 2019-01-25 | Outpatient (CLI) | payer OTHER ==
[~2019-01-25] MED LIST changes: -BENZ0.5T; -BENZ0.5T PO; +BENZ0.5T23; +BENZ0.5T23 PO
[2019-01-25 15:29] LABS: HEMATOCRIT 51.6 % (42.0-52.0); HEMOGLOBIN 17.6 g/dl (13.5-17.5); MEAN CORPUSCULAR HEMOGLOBIN 29.6 pg (27.0-33.0); MEAN CORPUSCULAR HGB CONC 34.1 g/dl (32.0-36.5); MEAN CORPUSCULAR VOLUME 86.7 fl (80.0-96.0); PLATELET COUNT, AUTOMATED 190 10^3/uL (150-450); RED BLOOD COUNT 5.95 10^6/uL (4.30-6.10); WHITE BLOOD COUNT 8.3 10^3/uL (4.0-10.0)
[2019-01-25 15:57] LABS: ALBUMIN 3.8 GM/DL (3.2-5.2); ALT/SGPT 44 U/L (12-78); BILIRUBIN,TOTAL 0.2 MG/DL (0.2-1.0); BLOOD UREA NITROGEN 13 MG/DL (7-18); CALCIUM LEVEL 9.2 MG/DL (8.5-10.1); CARBON DIOXIDE LEVEL 29 MEQ/L (21-32); CHLORIDE LEVEL 106 MEQ/L (98-107); CREATININE FOR GFR 1.09 MG/DL (0.70-1.30); GLOMERULAR FILTRATION RATE > 60.0 (>60); GLUCOSE, FASTING 99 MG/DL (70-100); POTASSIUM SERUM 4.5 MEQ/L (3.5-5.1); SODIUM LEVEL 140 MEQ/L (136-145)
[2019-01-25 16:57] LABS: CHLAMYDIA DNA AMPLIFICATION NEGATIVE (NEGATIVE); GC DNA AMPLIFICATION NEGATIVE (NEGATIVE)
[2019-01-26 09:27] LABS: HEPATITIS B SURFACE ANTIGEN NEGATIVE (NEGATIVE)
[2019-01-26 09:54] LABS: HIV 1&2 SCREEN CENTAUR NEGATIVE (NEGATIVE)
[2019-01-26 10:09] LABS: HEPATITIS C VIRUS ABY INDEX > 11.0 INDEX (<0.8)
--- NOTE | 2019-01-26 10:20 | ECGEPIP ---
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
== END ==
LOC: M LAB 14:51
PROVIDERS: ATTEND Family Medicine
DX: F11.21 Opioid dependence, in remission (principal)

== ENCOUNTER → 2020-03-09 | Outpatient (CLI) | payer OTHER ==
[~2020-03-09] MED LIST changes: -FLUO20CA19; -FLUO20CA19 PO; +FLUO20CA22; +FLUO20CA22 PO
--- NOTE | 2020-03-13 13:10 | SLEEPHOME ---
DATE: 03/09/2020 ORDERED BY: Bartolome Walker MD Diagnostic home sleep testing was performed due to concern for the obstructive sleep apnea syndrome in this patient with a history of excessive somnolence and nonrestorative sleep. For testing, a nocturnal T3 respiratory monitoring device was used. Continuous record was made of pulse, oxygen saturation, air flow, chest and abdominal strain, and body position. Nine hours and 59 minutes of data were reviewed. There were 4 hours and 31 minutes marked as time in bed. During the interval marked time in bed, there were 189 respiratory events identified of 10 seconds in duration or greater for a respiratory event index of 41.7. The events were obstructive. There were 13 mixed and central apneas. Baseline pulse rate was 74. Pulse rate ranged 54 to 106. Baseline saturation was 91%. Saturations fell to as low as 84% and testing was performed in both the supine and nonsupine positions. IMPRESSION: Abnormal home sleep testing with repetitive respiratory events and oxygen desaturations to 84% with a respiratory event index of 41.7 is consistent with the obstructive sleep apnea syndrome. RECOMMENDATION: The patient should be encouraged to undergo a formal sleep evaluation. MTDD
== END ==
LOC: M SLEEP HO 11:25
PROVIDERS: ATTEND Physician Assistant
DX: G47.33 Obstructive sleep apnea (adult) (pediatric) (principal)

== ENCOUNTER → 2021-08-01 | Outpatient (CLI) | payer OTHER, MEDICAID ==
[2021-08-01 12:18] LABS: HEMOGLOBIN 19.4 g/dl (13.5-17.5); MEAN CORPUSCULAR HEMOGLOBIN 29.1 pg (27.0-33.0); MEAN CORPUSCULAR HGB CONC 34.6 g/dl (32.0-36.5); MEAN CORPUSCULAR VOLUME 84.1 fl (80.0-96.0); PLATELET COUNT, AUTOMATED 193 10^3/uL (150-450); RED BLOOD COUNT 6.66 10^6/uL (4.30-6.10); WHITE BLOOD COUNT 9.1 10^3/uL (4.0-10.0)
[2021-08-01 12:52] LABS: BLOOD UREA NITROGEN 16 MG/DL (7-18); CREATININE FOR GFR 0.96 MG/DL (0.70-1.30); GLUCOSE, FASTING 109 MG/DL (70-100)
[2021-08-01 12:53] LABS: ALT/SGPT 65 U/L (12-78); BILIRUBIN,TOTAL 0.3 MG/DL (0.2-1.0); CALCIUM LEVEL 9.7 MG/DL (8.5-10.1); CARBON DIOXIDE LEVEL 31 MEQ/L (21-32); CHLORIDE LEVEL 104 MEQ/L (98-107); GLOMERULAR FILTRATION RATE > 60.0 (>60); POTASSIUM SERUM 4.6 MEQ/L (3.5-5.1); SODIUM LEVEL 138 MEQ/L (136-145); TOTAL PROTEIN 7.2 GM/DL (6.4-8.2)
[2021-08-01 13:09] LABS: HEPATITIS B SURFACE ANTIGEN NEGATIVE (NEGATIVE)
[2021-08-01 13:35] LABS: GC DNA AMPLIFICATION NEGATIVE (NEGATIVE)
[2021-08-01 13:39] LABS: HIV 1&2 SCREEN CENTAUR NEGATIVE (NEGATIVE)
[2021-08-01 14:43] LABS: HEPATITIS C VIRUS ABY INDEX > 11.0 INDEX (<0.8)
== END ==
LOC: M EKG 10:54
PROVIDERS: ATTEND Family Medicine
DX: F11.20 Opioid dependence, uncomplicated (principal)

== ENCOUNTER → 2021-08-01 | Outpatient (CLI) | payer OTHER, MEDICAID ==
[2021-08-01 12:11] LABS: BASO # 0.1 10^3/uL (0.0-0.2); EOS # 0.3 10^3/uL (0.0-0.5); EOS % 3.5 % (0.0-3.0); HEMATOCRIT 55.5 % (42.0-52.0); HEMOGLOBIN 18.9 g/dl (13.5-17.5); LYMPH # 2.7 10^3/uL (1.5-5.0); LYMPH % 31.9 % (24.0-44.0); MEAN CORPUSCULAR HEMOGLOBIN 28.6 pg (27.0-33.0); MEAN CORPUSCULAR HGB CONC 34.1 g/dl (32.0-36.5); MONO # 0.8 10^3/uL (0.0-0.8); MONO % 9.6 % (2.0-8.0); NEUTROPHILS # 4.5 10^3/uL (1.5-8.5); NEUTROPHILS % 53.4 % (36.0-66.0); PLATELET COUNT, AUTOMATED 194 10^3/uL (150-450); RED BLOOD COUNT 6.61 10^6/uL (4.30-6.10); WHITE BLOOD COUNT 8.4 10^3/uL (4.0-10.0)
[2021-08-01 12:43] LABS: ALT/SGPT 62 U/L (12-78); BILIRUBIN,TOTAL 0.3 MG/DL (0.2-1.0); BLOOD UREA NITROGEN 17 MG/DL (7-18); CALCIUM LEVEL 9.5 MG/DL (8.5-10.1); CARBON DIOXIDE LEVEL 32 MEQ/L (21-32); CHLORIDE LEVEL 104 MEQ/L (98-107); CHOLESTEROL LEVEL 229 MG/DL (<200); CHOLESTEROL RISK RATIO 8.807 (<5); CREATININE FOR GFR 0.95 MG/DL (0.70-1.30); GLOMERULAR FILTRATION RATE > 60.0 (>60); GLUCOSE, FASTING 114 MG/DL (70-100); HDL CHOLESTEROL 26 MG/DL (>40); LDL CHOLESTEROL 139 MG/DL (<100); NON-HDL-C 203 MG/DL; POTASSIUM SERUM 4.4 MEQ/L (3.5-5.1); SODIUM LEVEL 139 MEQ/L (136-145); TRIGLYCERIDES LEVEL 319 MG/DL (<150)
[2021-08-01 13:12] LABS: HEMOGLOBIN A1c 5.7 %
[2021-08-02 19:07] LABS: PSA TOTAL 0.3 ng/mL (0.0-4.0); TESTOSTERONE FREE (DIRECT) 14.2 pg/mL (6.8-21.5)
== END ==
LOC: M LAB 10:52
PROVIDERS: ATTEND Physician Assistant
DX: I10 Essential (primary) hypertension (principal)

== ENCOUNTER 2023-03-06 16:13 | Emergency (ER) | payer OTHER ==
[~2023-03-06] VITALS: Ht 167.6 cm; Wt 111.6 kg
[2023-03-06 16:14] VITALS: TEMP 98
[2023-03-06 18:25] VITALS: BP 141/88; O2SAT 94
== END 2023-03-06 21:35 | disposition home or self-care (01) ==
LOC: M ED 16:13
DX: D75.1 Secondary polycythemia (principal); J44.9 Chronic obstructive pulmonary disease, unspecified; F41.9 Anxiety disorder, unspecified; F32.A Depression, unspecified; Z86.19 Personal history of other infectious and parasitic diseases; F17.200 Nicotine dependence, unspecified, uncomplicated; Z79.899 Other long term (current) drug therapy; Z79.890 Hormone replacement therapy

== ENCOUNTER → 2023-03-06 | Outpatient (CLI) | payer OTHER ==
[~2023-03-06] MED LIST changes: +BENZ0.5T2; +BENZ0.5T2 PO; -BENZ0.5T23; -BENZ0.5T23 PO
[2023-03-06 15:03] LABS: HEMATOCRIT 59.5 % (42.0-52.0); MEAN CORPUSCULAR HEMOGLOBIN 29.6 pg (27.0-33.0); MEAN CORPUSCULAR HGB CONC 34.3 g/dl (32.0-36.5); MEAN CORPUSCULAR VOLUME 86.2 fl (80.0-96.0); PLATELET COUNT, AUTOMATED 184 10^3/uL (150-450); WHITE BLOOD COUNT 9.3 10^3/uL (4.0-10.0)
[2023-03-06 15:06] LABS: HEMOGLOBIN 20.4 g/dl (13.5-17.5)
[2023-03-06 15:10] LABS: HEMOGLOBIN A1c 5.1 % (4.0-6.0)
[2023-03-06 15:33] LABS: ALBUMIN 4.5 G/DL (3.2-5.2); ALKALINE PHOSPHATASE 61 U/L (46-116); ALT/SGPT 59 U/L (7.0-40); AST/SGOT 24 U/L (<34); BILIRUBIN,TOTAL 0.4 MG/DL (0.3-1.2); BLOOD UREA NITROGEN 18 MG/DL (9-23); CALCIUM LEVEL 9.8 MG/DL (8.5-10.1); CARBON DIOXIDE LEVEL 31 MMOL/L (20-31); CHLORIDE LEVEL 101 MMOL/L (98-107); CHOLESTEROL LEVEL 150 MG/DL (<200); CHOLESTEROL RISK RATIO 4.98 (<5); CREATININE FOR GFR 0.93 MG/DL (0.70-1.30); GLOMERULAR FILTRATION RATE > 60.0 (>60); GLUCOSE, FASTING 97 MG/DL (60-100); HDL CHOLESTEROL 30.1 MG/DL (>40); LDL CHOLESTEROL 84.7 MG/DL (<100); NON-HDL-C 119.9 MG/DL; POTASSIUM SERUM 4.4 MMOL/L (3.5-5.1); SODIUM LEVEL 139 MMOL/L (136-145); TOTAL PROTEIN 7.5 G/DL (5.7-8.2); TRIGLYCERIDES LEVEL 176 MG/DL (<150)
[2023-03-06 15:36] LABS: THYROID STIMULATING HORMONE 3.031 uIU/ML (0.55-4.78); TOTAL 25(OH) VITAMIN D 52.5 NG/ML (20.0-100.0)
== END ==
LOC: M PLALAB 08:45
PROVIDERS: ATTEND Nurse Practitioner Adult Health
DX: E29.1 Testicular hypofunction (principal); I10 Essential (primary) hypertension; K21.9 Gastro-esophageal reflux disease without esophagitis; R73.03 Prediabetes; E78.5 Hyperlipidemia, unspecified; E55.9 Vitamin D deficiency, unspecified; F41.9 Anxiety disorder, unspecified; E66.9 Obesity, unspecified; Z79.890 Hormone replacement therapy; Z79.899 Other long term (current) drug therapy

== ENCOUNTER → 2023-04-23 | Outpatient (CLI) | payer OTHER ==
[~2023-04-23] MED LIST changes: +METH-1177 PO; +TEST200I14
== END ==
LOC: M RAD 07:50
PROVIDERS: ATTEND Internal Medicine Hematology & Oncology
DX: D45 Polycythemia vera (principal); K76.0 Fatty (change of) liver, not elsewhere classified; R16.2 Hepatomegaly with splenomegaly, not elsewhere classified

== ENCOUNTER → 2023-11-04 | Outpatient (CLI) | payer OTHER, MEDICAID ==
[~2023-11-04] MED LIST changes: +FLUO-365; +FLUO-365 PO; -FLUO20CA22; -FLUO20CA22 PO; +PRAZ1CAP
== END ==
LOC: M WUC 10:56
PROVIDERS: ATTEND Nurse Practitioner Family
DX: M54.50 Low back pain, unspecified (principal)

== ENCOUNTER → 2024-02-16 | Outpatient (REF) | payer OTHER, MEDICAID ==
[2024-02-16 09:00] LABS: HEMATOCRIT 49.4 % (42.0-52.0); HEMOGLOBIN 17.1 g/dl (13.5-17.5); MEAN CORPUSCULAR HEMOGLOBIN 29.4 pg (27.0-33.0); MEAN CORPUSCULAR HGB CONC 34.6 g/dl (32.0-36.5); MEAN CORPUSCULAR VOLUME 84.9 fl (80.0-96.0); PLATELET COUNT, AUTOMATED 183 10^3/uL (150-450); RED BLOOD COUNT 5.82 10^6/uL (4.30-6.10); WHITE BLOOD COUNT 8.3 10^3/uL (4.0-10.0)
[2024-02-16 09:50] LABS: ALBUMIN 3.9 G/DL (3.2-5.2); ALKALINE PHOSPHATASE 69 U/L (46-116); ALT/SGPT 47 U/L (7.0-40); AST/SGOT 17 U/L (<34); BILIRUBIN,TOTAL 0.3 MG/DL (0.3-1.2); BLOOD UREA NITROGEN 14 MG/DL (9-23); CARBON DIOXIDE LEVEL 32 MMOL/L (20-31); CHLORIDE LEVEL 105 MMOL/L (98-107); CREATININE FOR GFR 0.87 MG/DL (0.70-1.30); GLOMERULAR FILTRATION RATE > 60.0 (>60); GLUCOSE, FASTING 83 MG/DL (60-100); POTASSIUM SERUM 4.3 MMOL/L (3.5-5.1); SODIUM LEVEL 142 MMOL/L (136-145); TOTAL PROTEIN 6.9 G/DL (5.7-8.2)
[2024-02-16 10:06] LABS: HEPATITIS B SURFACE ANTIGEN NEGATIVE (NEGATIVE)
[2024-02-16 10:19] LABS: HIV 1&2 SCREEN NEGATIVE (NEGATIVE)
[2024-02-16 11:13] LABS: GC DNA AMPLIFICATION NEGATIVE (NEGATIVE)
[2024-02-16 11:22] LABS: HEPATITIS C VIRUS ABY INDEX > 11.00 INDEX (<0.8)
== END ==
LOC: M LAB REF 08:39
PROVIDERS: ATTEND Family Medicine
DX: F11.20 Opioid dependence, uncomplicated (principal)

== ENCOUNTER 2024-05-15 15:27 | Emergency (ER) | payer MEDICAID, OTHER ==
[~2024-05-15] VITALS: Ht 167.6 cm; Wt 111.2 kg
[2024-05-15] MEDS ORDERED: TEST1INJ3 (15:35)
[2024-05-15] MEDS ORDERED: QUET100T2 (15:35)
[2024-05-15] MEDS ORDERED: MELO7.5T35 PO (18:32)
[2024-05-15] MEDS ORDERED: LIDO1PAD TOP (18:34)
[2024-05-15] MEDS: LIDOCAINE 5% (LIDODERM) PATCH TD ONE (18:35)
[2024-05-15 18:41] VITALS: BP 144/94; TEMP 96.9; O2SAT 98
== END 2024-05-15 19:00 | disposition home or self-care (01) ==
LOC: M ED 15:27
DX: M54.32 Sciatica, left side (principal); M51.370 Other intervertebral disc degeneration, lumbosacral region with discogenic back pain only; M25.78 Osteophyte, vertebrae; F32.A Depression, unspecified; Z79.52 Long term (current) use of systemic steroids; Z79.899 Other long term (current) drug therapy

== ENCOUNTER 2024-06-28 08:58 | Outpatient (RCR) | payer OTHER ==
[~2024-06-28 08:58] MED LIST changes: +LIDO1PAD TOP; +MELO7.5T35 PO; +QUET100T2; +TEST1INJ3
== END 2024-07-08 ==
LOC: M PT 08:58
DX: M54.50 Low back pain, unspecified (principal)

== ENCOUNTER 2024-08-04 13:33 | Outpatient (RCR) | payer OTHER | END 2024-08-08 | LOC: M PT 13:33 | DX: M54.50 Low back pain, unspecified (principal) ==

== ENCOUNTER → 2024-09-07 | Outpatient (RCR) | payer OTHER ==
[~2024-09-07] MED LIST changes: -AMBI10TA PO; +ZOLP-533 PO
== END ==
LOC: M PT 08-09 07:45
DX: M54.50 Low back pain, unspecified (principal)

== ENCOUNTER → 2025-02-23 | Outpatient (CLI) | payer OTHER ==
[2025-02-23 11:02] LABS: PLATELET COUNT, AUTOMATED 199 10^3/uL (150-450)
[2025-02-23 11:30] LABS: ALT/SGPT 41 U/L (7.0-40); AST/SGOT 21 U/L (<34); CALCIUM LEVEL 9.7 MG/DL (8.5-10.1); CARBON DIOXIDE LEVEL 29 MMOL/L (20-31); CHLORIDE LEVEL 103 MMOL/L (98-107); CHOLESTEROL LEVEL 219 MG/DL (<200); CHOLESTEROL RISK RATIO 7.11 (<5); CREATININE FOR GFR 0.89 MG/DL (0.70-1.30); GLOMERULAR FILTRATION RATE > 90.0 (>60); LDL CHOLESTEROL 115.6 MG/DL (<100); NON-HDL-C 188.2 MG/DL; POTASSIUM SERUM 4.4 MMOL/L (3.5-5.1); SODIUM LEVEL 141 MMOL/L (136-145); TRIGLYCERIDES LEVEL 363 MG/DL (<150)
[2025-02-23 11:33] LABS: FREE T4 1.33 NG/DL (0.89-1.76)
== END ==
LOC: M LAB 09:07
DX: I10 Essential (primary) hypertension (principal); E78.5 Hyperlipidemia, unspecified; R53.83 Other fatigue; E29.1 Testicular hypofunction